=== PATIENT | male | born 1965 | race Caucasian/White ===

== ENCOUNTER 2016-08-30 22:00 | Emergency (ER) | payer MEDICARE ==
[2016-08-30 22:01] VITALS: BP 154/100; PULSE 98; RESP 16; TEMP 98.6; O2SAT 98
[2016-08-30] MEDS ORDERED: wellbutrin PO (22:44)
[2016-08-30] MEDS ORDERED: buspirone PO (22:44)
--- NOTE | 2016-08-30 22:51 | PD ---
HPI Chief Complaint: Psychiatric Symptoms Time Seen by Provider: 22:48 Travel History International Travel<30 days: No Contact w/Intl Traveler<30days: No Traveled to known affect area: No History of Present Illness HPI 50-year-old white male presents to emergency department on a voluntary basis for psychological evaluation. He states that he has a history of PTSD, bipolar and is having suicidal thoughts. He states that he would like to put a bullet through his jaw. He admits to history of chronic alcohol abuse. He states that he has not been sleeping in several days. He drinks heavily. He had woken up in the closet [employer]. He had called police and notified them he was feeling depressed and having suicidal thoughts. He denies any toxic ingestions. He does smoke cigarettes and marijuana on occasion. He states that he hurts all over all the time. He denies any recent illness. The patient claims that he is compliant with his medications. [facility] Past Medical History Narrative Medical Bipolar, PTSD, chronic alcohol abuse Bipolar Disorder: Yes Depression: Yes Diminished Hearing: No Medical other: Yes (PTSD) Tetanus Vaccination: Unknown Influenza Vaccination: Yes Past Surgical History Narrative Surgical Appendectomy, tonsillectomy Appendectomy: Yes ( A CHILD) Tonsillectomy: Yes Social History Alcohol Use: Yes (HX OF ALCOHOLISM ) Tobacco Use: Yes (2 PPD) Substance Use: Yes (CHRONIC ALCOHOL ABUSE) Allergies-Medications (Allergen,Severity, Reaction): Coded Allergies: PEANUTS (Verified Allergy, Severe, Anaphylaxis, 08/30/16) Penicillin (Verified Allergy, Severe, Anaphylaxis, 08/30/16) Reported Meds & Prescriptions Reported Meds & Active Scripts Active Reported [buspirone] 1 Tab PO DAILY [wellbutrin] 1 Tab PO BID Review of Systems Except as stated in HPI: all other systems reviewed are Neg Physical Exam Narrative GENERAL: Well-nourished, well-developed patient. SKIN: Warm and dry. HEAD: Normocephalic and atraumatic. EYES: No scleral icterus. No injection or drainage. ENT: No nasal drainage noted. Mucous membranes pink. Airway patent. NECK: Supple, trachea midline. Moves head freely without obvious discomfort. CARDIOVASCULAR: Regular rate and rhythm without murmurs, gallops, or rubs. RESPIRATORY: Breath sounds equal bilaterally. No accessory muscle use. GASTROINTESTINAL: Abdomen soft, non-tender, nondistended. EXTREMITIES: No cyanosis or edema. BACK: Nontender without obvious deformity. No CVA tenderness. NEURO: Patient is alert and oriented. no sensorimotor deficits. Nonfocal. Normal speech. PSYCH: No delusions. No auditory or visual hallucinations. Data Data Last Documented VS Vital Signs Date Time Temp Pulse Resp B/P Pulse Ox O2 Delivery O2 Flow Rate FiO2 08/30/16 23:14 98 18 137/99 95 Room Air 08/30/16 22:01 98.6 Orders Complete Blood Count With Diff (08/30/16 22:42) Comprehensive Metabolic Panel (08/30/16 22:42) Psych Screen (08/30/16 22:42) Drug Screen, Random Urine (08/30/16 22:42) Alcohol (Ethanol) (08/30/16 22:42) Salicylates (Aspirin) (08/30/16 22:42) Tylenol (Acetaminophen) (08/30/16 22:42) Clonidine (Catapres) (08/30/16 23:00) Metoprolol Tartrate (Lopressor) (08/30/16 23:30) Hydroxyzine Hcl Inj (Vistaril Inj) (08/30/16 23:30) Labs Laboratory Tests Test 08/30/16 22:55 White Blood Count 8.2 TH/MM3 Red Blood Count 4.76 MIL/MM3 Hemoglobin 16.6 GM/DL Hematocrit 46.9 % Mean Corpuscular Volume 98.6 FL Mean Corpuscular Hemoglobin 34.9 PG Mean Corpuscular Hemoglobin 35.4 % Concent Red Cell Distribution Width 13.5 % Platelet Count 274 TH/MM3 Mean Platelet Volume 7.3 FL Neutrophils (%) (Auto) 53.5 % Lymphocytes (%) (Auto) 33.1 % Monocytes (%) (Auto) 10.3 % Eosinophils (%) (Auto) 1.6 % Basophils (%) (Auto) 1.5 % Neutrophils # (Auto) 4.4 TH/MM3 Lymphocytes # (Auto) 2.7 TH/MM3 Monocytes # (Auto) 0.8 TH/MM3 Eosinophils # (Auto) 0.1 TH/MM3 Basophils # (Auto) 0.1 TH/MM3 CBC Comment DIFF FINAL Differential Comment Urine Opiates Screen NEG Urine Barbiturates Screen NEG Urine Amphetamines Screen NEG Urine Benzodiazepines Screen NEG Urine Cocaine Screen NEG Urine Cannabinoids Screen NEG MDM Medical Decision Making Medical Screen Exam Complete: Yes Emergency Medical Condition: Yes Medical Record Reviewed: Yes Differential Diagnosis MDM: High Differential diagnoses: Schizophrenia, schizoaffective disorder, bipolar, anxiety, depression, adjustment reaction, mood disorder NOS, ODD, depressive disorder NOS, dementia, dementia with agitation, psychosis NOS, substance induced mood disorder, intermittent explosive disorder, Asperger syndrome, infection,electrolyte abnormality, malingering. Narrative Course Mental health screening discussed with the patient. Psychiatric screen ordered. The patient is requesting something for his sleep deprivation as well as something for her headache and body pain. He is also given Lopressor for his elevated blood pressure. The patient is given Lopressor 25 mg by mouth, Vistaril 75 mg IM, and Motrin 600 mg by mouth. Pablito Abernathy Aug 30, 2016 22:51
[2016-08-30] MEDS ORDERED: cloNIDine HCL 0.1 MG TAB PO ONE (23:00)
[2016-08-30 23:07] LABS: AUTOMATED NEUTROPHIL # 4.4 TH/MM3 (1.8-7.7); BASOPHIL # 0.1 TH/MM3 (0-0.2); BASOPHIL % 1.5 % (0.0-2.0); EOSINOPHIL # 0.1 TH/MM3 (0-0.4); EOSINOPHIL % 1.6 % (0.0-4.0); HEMATOCRIT 46.9 % (39.0-51.0); HEMO FLAGS DIFF FINAL; LYMPH % 33.1 % (9.0-44.0); LYMPHOCYTE # 2.7 TH/MM3 (1.0-4.8); MEAN CELL VOLUME 98.6 FL (80.0-100.0); MEAN CORPUSCULAR HEMOGLOBIN 34.9 PG (27.0-34.0); MEAN CORPUSCULAR HGB CONC 35.4 % (32.0-36.0); MONO % 10.3 % (0.0-8.0); NEUT % 53.5 % (16.0-70.0); PLATELET COUNT 274 TH/MM3 (150-450); RED BLOOD COUNT 4.76 MIL/MM3 (4.50-5.90); RED CELL DISTRIBUTION WIDTH 13.5 % (11.6-17.2); WHITE BLOOD COUNT 8.2 TH/MM3 (4.0-11.0)
[2016-08-30 23:13] LABS: AMPHETAMINE, URINE NEG (NEG); BARBITURATES, URINE NEG (NEG); COCAINE, URINE NEG (NEG)
[2016-08-30 23:14] VITALS: BP 137/99; PULSE 98; RESP 18; O2SAT 95
[2016-08-30] MEDS ORDERED: METOPROLOL TARTRATE 25 MG TAB PO ONE (23:30)
[2016-08-30] MEDS ORDERED: IBUPROFEN 600 MG TAB PO ONE (23:30)
[2016-08-30] MEDS ORDERED: hydrOXYzine HCL 50 MG/ML VIAL IM ONE (23:30)
[2016-08-30 23:38] LABS: ANION GAP 13 MEQ/L (5-15); AST (GOT) 114 U/L (15-37); BICARBONATE 24.8 MEQ/L (21.0-32.0); BLOOD UREA NITROGEN 8 MG/DL (7-18); CHLORIDE 105 MEQ/L (98-107); GLOMERULAR FILTRATION RATE 115 ML/MIN (>89); POTASSIUM 3.2 MEQ/L (3.5-5.1); SODIUM (NA) 143 MEQ/L (136-145)
[2016-08-30 23:42] LABS: ACETAMINOPHEN LESS THAN 2.0 MCG/ML (10.0-30.0); ALKALINE PHOSPHATASE 79 U/L (45-117); ALT (GPT) 58 U/L (12-78); TOTAL BILIRUBIN ADULT 0.6 MG/DL (0.2-1.0)
[2016-08-30] MEDS ORDERED: NICOTINE 21 MG/24 HR PATCH T-DERMAL ONE (23:45)
[2016-08-31] MEDS ORDERED: POTASSIUM CHLORIDE 20 MEQ CONTROLLED RELEASE TAB PO ONE (00:30)
[2016-08-31 02:02] VITALS: BP 149/84; PULSE 86; RESP 16; O2SAT 94
--- NOTE | 2016-08-31 10:53 | PD.CONS ---
Provisional Diagnosis Admission Date [place] I. Alcohol abuse with alcohol-induced mood disorder F10.14 History of Present Illness Service Psychiatry Consult Requested By [facility] Reason for Consult Assessment Primary Care Physician Castro López, HPI Patient is a 50-year-old white male who comes here voluntarily making statements such as "I would love to eat a bullet right now" "EtOH daily" "would like to speak with someone about my mental issues. And seen screened in the ED blood alcohol level of 289, urine toxicology negative. At the present time patient sitting quietly in his room on J pod nurse Aakash present throughout session. Patient is calm cooperative with me stating that he is living in the family home by himself since his parents moved back to [place] about a month ago. He has been staying with his parents for a while since he returned [facility] to [facility]. Patient states she does have a girlfriend who comes over. She also is a user of alcohol. He states he is an alcoholic has been in detox and rehabilitation in the past has had multiple DUIs in the past he states he now drinks basically daily, vodka being his drink of choice, he says he drinks daily he drinks in the a.m., he drinks by himself and with his girlfriend. He does acknowledge past blacking out or passing out spells. He states he has smoked marijuana in the past. Also states while he is a fairly good relationship with his mother. He does have a contentious relationship with his siblings. Patient denies prior physical and/or sexual abuse. 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 Patient does denies suicidality homicidality voices or visions. We did discuss options for him he has gone to AA meetings in the past. He feels he would not benefit from eye physician certificate to [facility] [place] detox. Though he would be willing to go to the of support groups here at [facility]. Of interest patient is showing some hypertension some mild bradycardia we will have the emergency department staff reassess this gentleman since she has been psychiatrically cleared Review of Systems Constitutional: DENIES: Diaphoretic episodes, Fatigue, Fever, Weight gain, Weight loss, Chills, Dizziness, Change in appetite, Night Sweats Endocrine: DENIES: Heat/cold intolerance, Polydipsia, Polyuria, Polyphagia Eyes: DENIES: Blurred vision, Diplopia, Eye inflammation, Eye pain, Vision loss , Photosensitivity, Double Vision Ears, nose, mouth, throat: DENIES: Tinnitus, Hearing loss, Vertigo, Nasal discharge, Oral lesions, Throat pain, Hoarseness, Ear Pain, Running Nose, Epistaxis, Sinus Pain, Toothache, Odynophagia Respiratory: DENIES: Apneas, Cough, Snoring, Wheezing, Hemoptysis, Sputum production, Shortness of breath Cardiovascular: DENIES: Chest pain, Palpitations, Syncope, Dyspnea on Exertion , PND, Lower Extremity Edema, Orthopnea, Claudication Gastrointestinal: DENIES: Abdominal pain, Black stools, Bloody stools, Constipation, Diarrhea, Nausea, Vomiting, Difficulty Swallowing, Anorexia Genitourinary: DENIES: Sexual dysfunction, Urinary frequency, Urinary incontinence, Urgency, Hematuria, Dysuria, Nocturia, Penile Discharge, Testicular Pain, Testicular Swelling Musculoskeletal: DENIES: Joint pain, Muscle aches, Stiffness, Joint Swelling, Back pain, Neck pain Integumentary: DENIES: Abnormal pigmentation, Nail changes, Pruritus, Rash Hematologic/lymphatic: DENIES: Bruising, Lymphadenopathy Immunologic/allergic: DENIES: Eczema, Urticaria Neurologic: DENIES: Abnormal gait, Headache, Localized weakness, Paresthesias, Seizures, Speech Problems, Tremor, Poor Balance Psychiatric: DENIES: Anxiety, Confusion, Mood changes, Depression, Hallucinations, Agitation, Suicidal Ideation, Homicidal Ideation, Delusions Past Family Social History Coded Allergies: PEANUTS (Verified Allergy, Severe, Anaphylaxis, 08/30/16) Penicillin (Verified Allergy, Severe, Anaphylaxis, 08/30/16) Past Medical History Patient has multiple chronic medical problems Reported Medications [buspirone] No Conflict Check1 Tab PO DAILY 08/30/16 [wellbutrin] No Conflict Check1 Tab PO BID 08/30/16 Family History Is some history of alcohol use in his family of origin Social History Patient lives by himself and the family home does have a girlfriend who is a drinker with him Patient's Strengths (min. 2) Patient verbal label axis health care is cooperative Physical Exam Patient seen screened in ED exam reviewed and agreed with Vital Signs Vital Signs Date Time Temp Pulse Resp B/P Pulse Ox O2 Delivery O2 Flow Rate FiO2 08/31/16 02:02 86 16 149/84 94 Room Air 08/30/16 22:01 98.6 Mental Status Examination Alert oriented white male clean-shaven head suntanned sitting calmly [place] with poor to fair eye contact Appearance Slightly disheveled but overall clean and 8 Speech: Unremarkable Orientation: x3 Memory: Unremarkable Thought Process: Logical, Organized Thought Content: Unremarkable Language Fair Fund of Knowledge Fair Hallucination Type: None Attention and Concentration: Good Suicidal Ideation: No (denies it at this time) Previous Suicide Attempts: No Homicidal Ideation: No Previous Homicide Attempts: No Insight: Fair Judgment: Poor Affect: Other (slight decreased range and intensity) Mood: Euthymic (to mildly dysphoric) Motor Activity: Normal gait Assessment & Plan Problem List: (1) Alcohol abuse with alcohol-induced mood disorder ICD Code: F10.14 Assessment & Plan Estimated LOS: days this time patient does not meet criteria for inpatient psychiatric care. Thus as okay by psych for discharge or medically clear and stable, no Rx by me, strongly referral to AA, referral also to the [facility] support groups. Beverages patient's initial hypertension with some mild bradycardia we are having the emergency department staff reassessed patient prior to discharge Discharge Planning See above Request HC Surrog/Guard Advoc?: No Mina Cuevas MD Aug 31, 2016 10:53
[2016-08-31] MEDS ORDERED: METOPROLOL TARTRATE 25 MG TAB PO ONE (11:00)
== END 2016-08-31 12:00 | disposition home or self-care (01) ==
LOC: NEPD 22:00 → NEPJ 08-31 12:00
DX: F31.9 Bipolar disorder, unspecified (principal); F10.129 Alcohol abuse with intoxication, unspecified; E87.6 Hypokalemia; R00.1 Bradycardia, unspecified; I10 Essential (primary) hypertension; F43.10 Post-traumatic stress disorder, unspecified; F17.210 Nicotine dependence, cigarettes, uncomplicated; F12.90 Cannabis use, unspecified, uncomplicated; Y90.8 Blood alcohol level of 240 mg/100 ml or more
CPT/HCPCS: 80053; 80307; 85025; 96372; 99284; J3410

== ENCOUNTER 2016-09-18 20:30 | Emergency (ER) | payer MEDICARE ==
[~2016-09-18] VITALS: Ht 167.6 cm; Wt 79.0 kg
[~2016-09-18 20:30] MED LIST: buspirone PO; wellbutrin PO
[2016-09-18 20:33] VITALS: BP 152/100; PULSE 105; RESP 16; TEMP 98.6; O2SAT 96
[2016-09-18] MEDS ORDERED: ERYTOIN10 EACH EYE (21:21)
--- NOTE | 2016-09-18 21:22 | PD ---
HPI . Alcohol abuse Chief Complaint: Alcohol/Drug Intoxication Time Seen by Provider: 21:14 Travel History International Travel<30 days: No Contact w/Intl Traveler<30days: No Traveled to known affect area: No History of Present Illness HPI Patient presents stating that he abuses alcohol and that he wants detox. The patient is actually demanding that we detox him here. He states that we are under an obligation to detox him here. Patient is also complaining with bilateral eye problems. He states that this has been present for a year. He complains with drainage from his eyes and hazy vision. No treatment prior to arrival. He reports no exacerbating or relieving factors. He states that his symptoms are severe. PFSH Past Medical History Bipolar Disorder: Yes Depression: Yes Diminished Hearing: No Past Surgical History Appendectomy: Yes ( A CHILD) Tonsillectomy: Yes Social History Alcohol Use: Yes (HX OF ALCOHOLISM ) Tobacco Use: Yes (2 PPD) Substance Use: Yes (CHRONIC ALCOHOL ABUSE) Allergies-Medications (Allergen,Severity, Reaction): Coded Allergies: PEANUTS (Verified Allergy, Severe, Anaphylaxis, 09/18/16) Penicillin (Verified Allergy, Severe, Anaphylaxis, 09/18/16) Reported Meds & Prescriptions Reported Meds & Active Scripts Active Reported [buspirone] 1 Tab PO DAILY [wellbutrin] 1 Tab PO BID Review of Systems Except as stated in HPI: all other systems reviewed are Neg Eyes: Positive: Blurred Vision, Drainage, Redness Psychiatric: Positive: Substance Abuse Physical Exam Narrative GENERAL: Awake and alert and in no acute distress. SKIN: Warm and dry. HEAD: Atraumatic. Normocephalic. EYES: Pupils equal and round. Extraocular movements are intact. The cornea or deep and clear. He has purulent drainage from both eyes. He has conjunctival injection of both eyes. NECK: Trachea midline. Neck is supple. CARDIOVASCULAR: Regular rate and rhythm. RESPIRATORY: No accessory muscle use. MUSCULOSKELETAL: No obvious deformities. No edema. NEUROLOGICAL: Awake and alert. No obvious cranial nerve deficits. Motor grossly within normal limits. Normal speech. PSYCHIATRIC: Demanding. Poor judgment. He does not appear to be currently intoxicated. Data Data Last Documented VS Vital Signs Date Time Temp Pulse Resp B/P Pulse Ox O2 Delivery O2 Flow Rate FiO2 09/18/16 20:33 98.6 105 16 152/100 96 Room Air MDM Medical Decision Making Medical Screen Exam Complete: Yes Emergency Medical Condition: Yes Differential Diagnosis Differential diagnosis of eye pain includes but is not limited to conjunctivitis , chemical irritation, corneal abrasion, acute angle-closure glaucoma. Narrative Course Patient presents with 2 complaints. His first is bilateral eye drainage, redness and poor vision. This is been present for a year. On exam, he has conjunctivitis. I will treat him with erythromycin ophthalmic ointment. His second complaint is alcohol abuse. He states that he wants detox. I have explained to the patient that we do not do detox here. He will be instructed to go to [facility] in the morning. I suspect that we will need to have him escorted out by police. Diagnosis Primary Impression: Conjunctivitis Qualified Code: H10.9 - Conjunctivitis of both eyes, unspecified conjunctivitis type Additional Impressions: Alcohol abuse Malingering Referrals: Lilliam Eason MD Patient Instructions: Conjunctivitis (DC), General Instructions Additional Instructions: Go to [facility] in the morning for assistance with your alcohol abuse. Med/Other Pt SpecificInfo: Prescription(s) given Scripts Erythromycin Opth Oint 5 Mg/Gm Oint1 Applic EACH EYE QID 10 Days Ref 0 Prov:Renata Guerin MD 09/18/16 Disposition: 01 DISCHARGE HOME Condition: Stable Renata Guerin MD Sep 18, 2016 21:22
== END 2016-09-18 21:40 | disposition home or self-care (01) ==
LOC: NEPD 20:30
DX: H10.9 Unspecified conjunctivitis (principal); F10.10 Alcohol abuse, uncomplicated; F31.9 Bipolar disorder, unspecified; F32.9 Major depressive disorder, single episode, unspecified; F17.200 Nicotine dependence, unspecified, uncomplicated; Z88.0 Allergy status to penicillin; Z76.5 Malingerer [conscious simulation]; Z79.899 Other long term (current) drug therapy
CPT/HCPCS: 99283